=== PATIENT | female | born 1980 | race Caucasian/White ===

== ENCOUNTER 2021-10-01 08:27 | Emergency (ER) | payer OTHER, SELFPAY ==
--- NOTE | 2021-10-01 08:28 | ED.FEMALEGU ---
HPI - Female Genitourinary General Chief complaint: Urogenital-Female Stated complaint: Urinary Problem Time Seen by Provider: 10/01/21 08:27 Source: patient Mode of arrival: ambulatory Limitations: no limitations History of Present Illness HPI Narrative: Ms. Guevara is a 41-year-old female patient presenting to the clinic today with complaints of a possible urinary tract infection. She reports she has urinary frequency and pressure over her bladder. Symptoms have been going on since Thursday. She denies any fever or chills. She denies any flank pain or lower abdominal pain. She denies any vaginal discharge. Reports that she has been abstinence for several years. Related Data Home Medications Medication Instructions Recorded Confirmed amlodipine 10 mg tablet tablet 10/01/21 metoprolol succinate 100 mg tablet PO 10/01/21 tablet,extended release 24 hr Allergies Allergy/AdvReac Type Severity Reaction Status Date / Time amoxicillin Allergy Intermediate Rash Verified 10/01/21 08:39 clavulanic acid Allergy Intermediate Rash Verified 10/01/21 08:39 ketorolac Allergy Intermediate Rash Verified 10/01/21 08:39 codeine AdvReac Intermediate Nausea and Verified 10/01/21 08:39 Vomiting Review of Systems Review of Systems: Pertinent positives per HPI. Patient denies any fever, chills, rash, headache, visual changes, dizziness, cough, runny nose, sore throat, shortness of breath, chest pain, palpitations, nausea, vomiting, diarrhea, constipation, abdominal pain PMFSH Comments At the time of my signature, I reviewed and agree with the nursing past medical, surgical, social, and family history. There is no relevant family history pertinent to the patient complaint. Exam Narrative: General: Well-developed, well nourished, in no apparent distress Head: Normocephalic, atraumatic. Cardio: Regular rate and rhythm, s1 and s2 normal, no murmur appreciated. Resp: Clear to auscultation bilaterally, no rhonchi, rales, wheezing or rubs. Abdomen: Soft, pliable, bowel sounds present in all quadrants, mild tenderness to palpation over the suprapubic area, no CVAT tenderness. Course Course Emergency Course: Portions of this record may have been created with voice recognition software. Level of Care: Express Care Visit Vital Signs Vital signs: Vital signs reviewed MDM - Female Genitourinary MDM Narrative Medical decision making narrative: At the time of visit patient was resting comfortably on the exam table. UA completed and shows trace of protein and blood. I will give her a prescription for some Pyridium to treat her symptoms and send her urine for culture. Supportive measures were discussed with the patient she voiced understanding of discharge instructions and agrees to the treatment plan. Differential Diagnosis Differential diagnosis: Likely urinary tract infection, cystitis and other (Overactive bladder, interstitial cystitis) Discharge Plan Discharge Clinical Impression: Urinary urgency, Urinary frequency Patient Disposition: Home, Self-Care Condition: Stable Instructions: Urinary Urgency and Frequency (DC) Additional Instructions: UA positive for trace of protein and blood. We will send for culture. Pyridium as prescribed Increase fluids and stay well hydrated Wipe front to back. May use wet wipes. Avoid tub baths If sexually active- pee before and after intercourse. Wear cotton panties Avoid tight clothing up against the genitals Follow up with your PCP in 1 week if symptoms persist. Prescriptions: New phenazopyridine [Pyridium] 200 mg tablet 200 mg PO TID PRN (Reason: pain) Qty: 6 0RF No Action metoprolol succinate 100 mg tablet extended release 24 hr PO amlodipine 10 mg tablet Follow-up/Referrals: UNKNOWN,DOCTOR [Non-Staff] - Time of Disposition: 08:52 Quality NIHSS Nursing Documentation ED NIHSS nursing documentation: rev
[2021-10-01 08:32] VITALS: BP 164/84; PULSE 84; RESP 16; TEMP 36.9; O2SAT 100
== END 2021-10-01 08:54 | disposition home or self-care (01) ==
PROVIDERS: Emergency Provider Nurse Practitioner Family
DX: R35.0 Frequency of micturition (principal); R39.15 Urgency of urination; I10 Essential (primary) hypertension
CPT/HCPCS: 81003; 87086; 87088; 99203; G0463